=== PATIENT | male | born 2000 | race Caucasian/White ===

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

== ENCOUNTER 2021-09-26 16:17 | Emergency (ER) | payer SELFPAY | END 2021-09-26 17:56 | disposition home or self-care (01) | LOC: MW.ED 16:17 | DX: S67.41XA Crushing injury of right wrist and hand, initial encounter (principal); W23.0XXA Caught, crushed, jammed, or pinched between moving objects, initial encounter; Y99.8 Other external cause status | CPT/HCPCS: 73110-26-RT; 73110-RT; 73130-26-RT; 73130-RT; 99283 ==

== ENCOUNTER 2022-10-18 03:30 | Emergency (ER) | payer SELFPAY | END 2022-10-18 04:31 | disposition home or self-care (01) | LOC: MW.ED 03:30 | DX: S02.609A Fracture of mandible, unspecified, initial encounter for closed fracture (principal); Y08.89XA Assault by other specified means, initial encounter | CPT/HCPCS: 70486; 70486-26; 99283 ==

== ENCOUNTER 2022-11-26 17:00 | Emergency (ER) | payer BC | END 2022-11-26 19:59 | disposition home or self-care (01) | LOC: MW.ED 17:00 | DX: S02.609A Fracture of mandible, unspecified, initial encounter for closed fracture (principal); W22.09XA Striking against other stationary object, initial encounter | CPT/HCPCS: 70486; 70486-26; 99283 ==

== ENCOUNTER → 2024-03-13 17:35 | Emergency (ER) | payer BC | END | disposition left against medical advice (07) | LOC: MW.ED 17:35 | DX: Z53.21 Procedure and treatment not carried out due to patient leaving prior to being seen by health care provider (principal) ==